=== PATIENT | female | born 1970 | race Caucasian/White ===

== ENCOUNTER → 2017-11-20 11:15 | Outpatient (CLI) | payer OTHER, SELFPAY ==
--- NOTE | 2017-11-21 | EMB_PTH ---
PATIENT: MORENO OLSON LOC: [facility] U#:[id number] AGE/SX: 55/F ROOM: RE11/20/[address]: Dr. Uday Nino MD : 1970 BED: DIS: SPEC #: [id number] RECD: 11/21/17 13:44 STATUS: MARY WILSONMalena #: [id number] ANABEL: 11/21/17 00:[address]: Uday Nino DEPT: SURGICAL PATHOLOGY RECD BY: Christian Holt ENTERED: 11/21/17 13:45 SP TYPE: ENDOM BX/C SALUD DR: Dr. Rebeka Balderrama MD Tissues: A - Endometrium, NOS B - Endocervical Procedures: Surgery Specimen Level IV HEADER OPERATION: Endometrial biopsy and cervical polyp removal PRE-OP DIAGNOSIS: Postmenopausal bleeding N95.0, N93.9 TISSUE SUBMITTED: A - Endometrial biopsy, B ? Cervical polyp MICROSCOPIC DIAGNOSIS A. Endometrial biopsy: Mildly disordered proliferative endometrium to early secretory endometrium. B. Cervical polyp, biopsy: Fragments of inflamed benign mixed ecto- and endocervical polyp. Fragments of benign endometrial tissue. ANNALISE:jamir 11/22/17 MICROSCOPIC DESCRIPTION Slides are reviewed. GROSS DESCRIPTION A - Received in fixative is one container labeled with the patient's name and designated endometrial biopsy. The specimen consists of multiple irregular and elongated fragments of graham tissue that in aggregate measure 2.5 x 2 x 0.2 cm. The specimen is totally submitted in one cassette. B - Received in fixative is one container labeled with the patient's name and designated cervical biopsy. The specimen consists of multiple irregular fragments of light graham soft tissue that in aggregate measure 2.2 x 2 x 0.2 cm. The specimen is totally submitted in one cassette. / AM:jamir 11/21/17 TC:5 CPT: 68610 x2
[2017-11-24 16:18] LABS: HPV Reflexed? NOT INDICATED
== END ==
PROVIDERS: Visit Provider Obstetrics & Gynecology
DX: N95.0 Postmenopausal bleeding (principal); N93.9 Abnormal uterine and vaginal bleeding, unspecified; Z12.4 Encounter for screening for malignant neoplasm of cervix
CPT/HCPCS: 88175; 88305; G0145

== ENCOUNTER → 2018-11-28 10:01 | Outpatient (CLI) | payer OTHER, SELFPAY ==
[2018-11-30 09:34] LABS: HPV Reflexed? NOT INDICATED
== END ==
PROVIDERS: Visit Provider Obstetrics & Gynecology
DX: Z12.4 Encounter for screening for malignant neoplasm of cervix (principal)
CPT/HCPCS: 87624; 88175; G0145

== ENCOUNTER → 2020-12-23 13:09 | Outpatient (CLI) | payer OTHER, SELFPAY ==
--- NOTE | 2020-12-23 | EMB_PTH ---
PATIENT: MORENO OLSON LOC: [facility] U#:[id number] AGE/SX: 55/F ROOM: RE12/23/[address]: Dr. Uday Nino MD : 1970 BED: DIS: SPEC #: [id number] RECD: 12/23/20 13:04 STATUS: MARY NATY #: [id number] ANABEL: 12/23/20 00:[address]: Uday Nino DEPT: SURGICAL PATHOLOGY RECD BY: Christian Holt ENTERED: 12/24/20 08:04 SP TYPE: ENDOM BX/C SALUD DR: No Primary Care Phys Tissues: Endometrium, NOS Procedures: Surgery Specimen Level IV HEADER OPERATION: Endometrial biopsy PRE-OP DIAGNOSIS: Abnormal uterine bleeding TISSUE SUBMITTED: Endometrial biopsy MICROSCOPIC DIAGNOSIS Endometrial biopsy: Disordered proliferative endometrium SJ:jamir 12/27/2020 MICROSCOPIC DESCRIPTION Slides are reviewed. GROSS DESCRIPTION Received in fixative is one container labeled with the patient's name and designated endometrial biopsy. The specimen consists of multiple irregular and elongated fragments of red-graham soft tissue that in aggregate measure 3 x 2.2 x 0.2 cm. The specimen is totally submitted in one cassette. / AM:jamir 12/24/20 TC:5 CPT: 47937
[2020-12-27 11:01] LABS: HPV Reflexed? NOT INDICATED
== END ==
PROVIDERS: Referring Provider Obstetrics & Gynecology; Visit Provider Obstetrics & Gynecology
DX: Z12.4 Encounter for screening for malignant neoplasm of cervix (principal); N93.9 Abnormal uterine and vaginal bleeding, unspecified
CPT/HCPCS: 88175; 88305; G0145